=== PATIENT | female | born 1965 | race Caucasian/White ===

== ENCOUNTER 2020-12-09 14:58 | Outpatient (RCR) | payer BC, SELFPAY ==
[2020-12-09] MEDS: COVID-19 VACC, MRNA(PFIZER)/PF 30 MCG/0.3 ML SYRINGE IM (16:00)
[2020-12-30] MEDS: COVID-19 VACC, MRNA(PFIZER)/PF 30 MCG/0.3 ML SYRINGE IM (15:18)
== END 2020-12-09 23:59 ==
LOC: IMMUN 14:58
PROVIDERS: PCP Internal Medicine; Visit Provider Family Medicine
DX: Z23 Encounter for immunization (principal)
CPT/HCPCS: 0001A; 0002A; 91300

== ENCOUNTER → 2021-06-21 | Outpatient (CLI) | payer BC, SELFPAY | END | disposition home or self-care (01) | LOC: LABSPEC 15:23 | PROVIDERS: PCP Internal Medicine; Referring Provider Physician Assistant; Visit Provider Physician Assistant | DX: U07.1 COVID-19 (principal) | CPT/HCPCS: 87635; U0005; U0003 ==

== ENCOUNTER 2021-09-18 16:33 | Outpatient (CLI) | payer BC, SELFPAY | END 2021-09-18 23:59 | disposition short-term general hospital (02) | LOC: LABSPEC 16:35 | PROVIDERS: PCP Internal Medicine; Visit Provider Physician Assistant | DX: R06.02 Shortness of breath (principal) | CPT/HCPCS: 87635; U0003; U0005 ==

== ENCOUNTER 2022-01-29 20:33 | Emergency (ER) | payer BC, SELFPAY ==
[2022-01-29 20:35] VITALS: BP 204/81; PULSE 95; RESP 16; TEMP 36.1; O2SAT 97; BMI 25.0
--- NOTE | 2022-01-29 20:47 | EDS_ITS ---
HPI History of Present Illness Chief Complaint: Allergic Reaction Informant: patient Narrative Narrative: 56-year-old female states that she took Augmentin this evening. She broke out in a rash and itching. She notes that her throat feels tight. She was prescribed this for ear infection. She notes bilateral ear pain and rhinorrhea. No vomiting or diarrhea. She states that she has had amoxicillin in the past and did not react to it [facility] Home Medications cefdinir 300 mg PO BID #20 cap 01/29/22 [Rx Last Taken Unknown] lisinopril 10 mg PO DAILY 01/29/22 [History Last Taken Unknown] pravastatin 40 mg PO DAILY 01/29/22 [History Last Taken Unknown] prednisone 60 mg PO DAILY #9 tablet 01/29/22 [Rx Last Taken Unknown] Allergy/AdvReac Type Severity Reaction Status Date / Time Androgenic Anabolic Steroid Allergy Mild Unknown Verified 01/29/22 20:38 codeine Allergy Mild Unknown Verified 01/29/22 20:38 amoxicillin [From Augmentin] Allergy Rash Verified 01/29/22 20:55 clavulanic acid Allergy Rash Verified 01/29/22 20:55 [From Augmentin] Social History (Updated 01/29/22 @ 20:[address] Nahid Monge, DO) Smoking Status: Current every day smoker tobacco type: cigarettes substance use type: does not use ROS ROS ED Constitutional Constitutional ED: Denies chills, fever(s) or weight loss Eyes Eyes: Denies change in vision or diplopia ENT ENT ED: Reports ear pain and rhinorrhea; Denies sore throat Cardiovascular Cardiovascular: Denies chest pain, orthopnea, palpitations or racing heartbeat Respiratory/Chest Respiratory/Chest: Denies cough, dyspnea or orthopnea Gastrointestinal Gastrointestinal: Denies abdominal pain, diarrhea, nausea or vomiting Genitourinary Genitourinary ED: Denies dysuria, hematuria or urinary frequency Musculoskeletal Musculoskeletal: Denies arthralgias or myalgias Integumentary Reports rash; Denies abscess Neurologic Neurologic: Denies headache(s) or weakness Psychiatric Psychiatric: Denies anxiety, depression, suicidal ideation or suicidal thoughts Endocrine Endocrinology: Denies polydipsia, polyphagia or polyuria Allergic/Immunologic Allergic/Immunologic ED: Denies mouth swelling, tongue swelling or urticaria EXAM Physical Exam Const Vital Signs: 01/29/22 20:35 01/29/22 20:56 01/29/22 21:41 Temperature 97 F L Temperature Source Temporal Pulse Rate 95 71 Respiratory Rate 16 15 Blood Pressure 204/81 H 156/76 H 145/56 H Blood Pressure Mean 122 102 85 Pulse Ox 97 94 Oxygen Delivery Method Room Air Room Air Positive well nourished and well developed General Appearance ED: well developed HEENT Reports normocephalic, head/scalp atraumatic and moist mucous membranes HEENT Narrative: Bilateral tympanic membrane erythema there is bilateral external ear swelling. The uvula is not swollen. There is no tongue swelling or lip swelling. The patient's voice appears normal and she is handling her secretions normally Negative for trauma Eyes PERRL and EOMs intact bilaterally Neck no lymphadenopathy, supple and no JVD Resp normal respiratory effort and clear to auscultation bilaterally Cardio regular rate, regular rhythm and no murmurs GI normal to inspection, nondistended, normoactive bowel sounds and non-tender Palpation: soft Back/Spine no CVA tenderness and normal ROM Extremity normal to inspection General Extremety ED: Negative for edema General Extremity: Negative for edema Neuro oriented x3 and CN's II-XII intact bilaterally Sensorium / Orientation: alert Motor Exam: strength 5/5 throughout Psych mental status grossly normal Mood & Affect: Negative for depressed or tearful Skin no wounds Skin Narrative: Patient has a diffuse erythematous rash over head torso and arms. There are some hives noted. MDM MDM MDM Narrative Medical decision making narrative: This does appear to be allergic reaction. She was treated with Benadryl and Solu-Medrol and observed. On repeat examination 1 1/2 hrs later she is feeling significantly improved. The fullness in her throat has resolved. Her rash is resolving and her ear swelling is gone. Patient will be prescribed prednisone is instructed to take Benadryl every 6 hours for the next 24 hours. I can write for cefdinir for the ear infection. Discharge Plan Triage Chief Complaint: Allergic Reaction ED Provider: Nahid Monge Dx/Rx/DC Orders Clinical Impression: Acute allergic reaction, Allergic reaction to penicillin, Otitis media Instructions: ED ADVERSE DRUG REACTION Allergic Prescriptions: New cefdinir 300 mg capsule 300 mg PO BID Qty: 20 RF: 0 prednisone 20 MG tablet 60 mg PO DAILY Qty: 9 RF: 0 No Action lisinopril 10 mg tablet 10 mg PO DAILY RF: 0 pravastatin 20 mg tablet 40 mg PO DAILY RF: 0 Primary Care Provider: Heather Parker Referrals: Heather Parker MD [Primary Care Provider] - As Needed Disposition Disposition: Home, Self Care
[2022-01-29] MEDS: DiphenhydrAMINE 50 MG/ML Syringe IV (20:51)
[2022-01-29] MEDS: MethylPREDNISolone 125 MG/2 ML Vial IV (20:51)
[2022-01-29 20:56] VITALS: BP 156/76
[2022-01-29 21:41] VITALS: BP 145/56; PULSE 71; RESP 15; O2SAT 94
[2022-01-29] MEDS: DiphenhydrAMINE 25 MG Capsule PO (22:37)
[2022-01-29 22:41] VITALS: BP 130/68; PULSE 87; RESP 15; O2SAT 99
== END 2022-01-29 22:42 | disposition home or self-care (01) ==
LOC: ED 20:51
PROVIDERS: Emergency Provider Emergency Medicine; PCP Internal Medicine; Visit Provider Emergency Medicine
DX: R22.0 Localized swelling, mass and lump, head (principal); T78.40XA Allergy, unspecified, initial encounter; T36.0X5A Adverse effect of penicillins, initial encounter; H66.93 Otitis media, unspecified, bilateral; F17.210 Nicotine dependence, cigarettes, uncomplicated
CPT/HCPCS: 96374; 96375; 99285; A4216

== ENCOUNTER 2022-05-14 03:17 | Emergency (ER) | payer BC, SELFPAY ==
[2022-05-14 03:17] VITALS: BP 168/87; PULSE 80; RESP 17; TEMP 36.7; O2SAT 100; BMI 26.3
--- NOTE | 2022-05-14 03:59 | EKG12_ITS ---
Test Reason : CP Blood Pressure : / mmHG Vent. Rate : 069 BPM Atrial Rate : 070 BPM P-R Int : 200 ms QRS Dur : 088 ms QT Int : 400 ms P-R-T Axes : 059 041 061 degrees QTc Int : 428 ms Normal sinus rhythm Normal ECG Confirmed by SOFYA BRITO, SARAH ([id number]), department editor DENIS MADRID ([id number]) on 05/15/2022 6:17:31 AM Referred By: BB Confirmed By:SARAH COWART MD
--- NOTE | 2022-05-14 04:01 | EDS_ITS ---
HPI History of Present Illness Chief Complaint: Chest Pain Informant: patient Onset/Context/Timing Onset: Today Narrative Narrative: Patient presents with relatively vague symptoms she has a hard time describing, but saying that she was intermittently feeling poorly. She states that this has been over the last several hours. She feels okay right now, but earlier she was having episodes of chills, and just feeling poorly, sometimes she felt palpitations like her heart was beating hard and racing at the same time, not skipping or necessarily irregular. She has no history of heart problems that she knows of. She takes medicine for blood pressure. She admits to having a cough lately. She states that she was feeling sick but denies nausea. She states something about the feeling her pulse, but has a hard time describing what ever she means. She denies any known fevers. She has felt a little achy. When asked if she has any diarrhea she states not yet but states she has felt gassy. No vomiting. No focal neurologic symptoms, no headache at this time. She started taking clindamycin 2 or 3 days ago for an otitis media. When she started having the symptoms tonight although she did not have any earache or pain, she took 2 naproxen and she cannot give me another reason why other than that she did not feel well. [facility] Medical History HTN (hypertension) Pure hypercholesterolemia, unspecified Home Medications lisinopril 10 mg tablet 10 mg PO DAILY 01/29/22 [History Last Taken Unknown] pravastatin 20 mg tablet 40 mg PO DAILY 01/29/22 [History Last Taken Unknown] clindamycin HCl 150 mg capsule 450 mg PO TID 05/14/22 [History Last Taken Unknown] Allergy/AdvReac Type Severity Reaction Status Date / Time Androgenic Anabolic Steroid Allergy Mild Unknown Verified 05/14/22 03:34 codeine Allergy Mild Unknown Verified 05/14/22 03:34 amoxicillin [From Augmentin] Allergy Rash Verified 05/14/22 03:34 clavulanic acid Allergy Rash Verified 05/14/22 03:34 [From Augmentin] Social History Smoking Status: Current every day smoker tobacco type: cigarettes substance use type: does not use ROS ROS ED Constitutional Constitutional ED: Reports as per HPI, fatigue and malaise; Denies chills Eyes Eyes: Denies change in vision or diplopia ENT ENT ED: Denies rhinorrhea or sore throat Cardiovascular Cardiovascular: Reports as per HPI, palpitations and racing heartbeat; Denies chest pain Respiratory/Chest Respiratory/Chest: Reports cough; Denies dyspnea Gastrointestinal Gastrointestinal: Reports as per HPI; Denies abdominal pain, diarrhea, hematochezia, melena, nausea or vomiting Genitourinary Genitourinary ED: Denies dysuria or hematuria Musculoskeletal Musculoskeletal: Reports myalgias; Denies back pain or neck pain Integumentary Denies abscess or rash Neurologic Neurologic: Denies headache(s), paresthesias or weakness Psychiatric Psychiatric: Denies anxiety or suicidal thoughts EXAM Physical Exam Const Vital Signs: 05/14/22 03:17 05/14/22 03:24 05/14/22 04:17 Temperature 98.1 F Temperature Source Oral Pulse Rate 80 66 Respiratory Rate 17 18 Respiratory Effort Normal Non-Labored Blood Pressure 168/87 H 152/74 H Blood Pressure Mean 114 100 Pulse Ox 100 98 Oxygen Delivery Method Room Air Room Air Positive well nourished and well developed General Appearance ED: well developed and NAD HEENT Reports moist mucous membranes normocephalic and atraumatic Eyes PERRL and EOMs intact bilaterally Neck full ROM, no lymphadenopathy and supple Resp normal respiratory effort and clear to auscultation bilaterally Cardio regular rate, regular rhythm and no murmurs Rate: Negative for bradycardia or tachycardic GI non-tender and non-distended Auscultation: normoactive bowel sounds Palpation: soft Back/Spine no CVA tenderness General Back: other FROM Extremity normal to inspection General Extremety ED: Negative for edema, pulses abnormal or tenderness General Extremity: Negative for edema or pulses abnormal Neuro oriented x3, CN's II-XII intact bilaterally and no sensory deficits noted Sensorium / Orientation: awake and alert Motor Exam: strength 5/5 throughout Skin no rashes or lesions noted and no wounds MDM MDM MDM Narrative Medical decision making narrative: Patient has fairly vague symptoms and the differential was broad including infectious, metabolic, cardiovascular etiologies, this is not an exclusive list. Her chest x-ray 1 view on my interpretation is negative for any acute infiltrates or CHF, her urine shows no infection. Metabolic screening is unremarkable, her blood counts are also unremarkable. I did a COVID rapid swab which is negative as is her influenza. With regards to COVID that she has only had symptoms for half of a day or less, a negative test does not necessarily rule it out and I would encourage her to repeat the rapid test in a couple days if she is still having symptoms. The differential includes elevations as well as a transient dysrhythmias and/or ectopy, here she has displayed no telemetry events or ectopy and her blood pressure is trended down initially 168/87 then 152/74, and now 133/71 without any specific treatment. She is taking clindamycin which is a relatively new medication, it is unknown if that could be causing any of this, she states she is taking it for otitis media, and at this time I think it would be okay to continue it but discontinue it would be up to her, I do not have any specific reason to recommend that at this time. At this time, given that everything is negative and her blood pressure has normalized, I am comfortable discharging her home with close outpatient follow-up. We discussed reasons to return she is comfortable with that plan. Lab Data Attestation: I reviewed the patient's lab results. Labs: Laboratory Results - last 24 hr 05/14/22 05/14/22 05/14/22 03:30 03:30 04:10 WBC 10.2 RBC 4.59 Hgb 15.4 H Hct 45.1 MCV 98.3 MCH 33.6 H MCHC 34.1 RDW Std Deviation 45.9 H RDW Coeff of [place] 12.9 Plt Count 359 MPV 8.9 Immature Gran % (Auto) 0.200 Neut % (Auto) 50.4 Lymph % (Auto) 38.3 Lucas % (Auto) 8.9 Eos % (Auto) 1.5 Baso % (Auto) 0.7 Absolute Neuts (auto) 5.1 Absolute Lymphs (auto) 3.90 Nucleated RBC % 0 Sodium 138 Potassium 3.8 Chloride 104 Carbon Dioxide 26.0 Anion Gap 8 BUN 13 Creatinine 0.83 Estim Creat Clear Calc 74.53 Est GFR (MDRD) Af Amer 91 Est GFR (MDRD) Non-Af 75 BUN/Creatinine Ratio 15.7 Glucose 111 H Calcium 9.4 Troponin I High Sens 5 Urine Color Yellow Urine Clarity Clear Urine pH 6.0 Ur Specific [place] 1.015 Urine Protein 15 H Urine Glucose (UA) Normal Urine Ketones Negative Urine Occult Blood 10 H Urine Nitrite Negative Urine Bilirubin Negative Urine Urobilinogen Normal Ur Leukocyte Esterase Negative Urine RBC 0 SEEN Urine WBC 0 SEEN Ur Squamous Epith Cells 0 SEEN Urine Bacteria RARE Urine Mucus 0 SEEN Radiography Chest X-Ray - ED: 1 View, Read by ED Physician, No Acute Disease and No Infiltrates Diagnostic Testing: Clinical Impression(s) from Imaging Studies Chest X-Ray 05/14/22 04:16 IMPRESSION: Stable hyperinflation. No pulmonary edema, congestive heart failure or confluent pneumonia. Electronically Signed: Nika Jacobs MD at 4:38 EDT Reading Location ID and State: , Service support , Rhythm Strip Rhythm Strip: Sinus Rhythm Rate: 70 Ectopy: None EKG Initial EKG: Attestation: I personally reviewed and interpreted this EKG as follows: Interpretation: Sinus Rhythm and No Acute Injury Pattern Comments: Normal EKG Discharge Plan Triage Chief Complaint: Chest Pain ED Provider: Azam Cotton Dx/Rx/DC Orders Clinical Impression: Palpitations, Malaise and fatigue, Chills, Acute cough Instructions: ED Palpitations Prescriptions: No Action lisinopril 10 mg tablet 10 mg PO DAILY pravastatin 20 mg tablet 40 mg PO DAILY Label Comments: Take 1 tablet by mouth daily at bedtime. clindamycin HCl 150 mg capsule 450 mg PO TID Label Comments: Take 3 capsules by mouth three times daily for 5 days. Primary Care Provider: Heather Parker Referrals: Heather Parker MD [Primary Care Provider] - 3-5 Days if not improving Activity Restrictions/Additional Instructions: All of your testing in the emergency department was normal and your blood pressure came down to normal, initially 168/87 and on repeat 133/71 later in your visit. You tested negative for COVID, however it is possible to have a false negative if you test too early. If you are still having symptoms after 2 more days we recommend redoing a rapid test. These are available [id number] for home use, local retail pharmacies, or to the hospital or your doctor may be able to help. Disposition Disposition: Home, Self Care
[2022-05-14 04:13] LABS: Absolute Neutrophil Count 5.1 X10^3/uL (2.0-7.7); Basophil# 0.07 X10^3/uL; Basophil% 0.7 % (0-1); Eosinophil# 0.15 X10^3/uL; Eosinophils% 1.5 % (0-5); Hematocrit 45.1 % (37-47); Hemoglobin 15.4 g/dL (12.0-15.0); Lymphocyte % 38.3 % (19-41); Mean Corp Hgb Conc 34.1 g/dL (32-36); Mean Corpuscular Hgb 33.6 pg (27.0-32.0); Mean Corpuscular Volume 98.3 fL (81-99); Mean Platelet Vol. 8.9 fl (6.2-12.0); Monocyte# 0.91 X10^3/uL; Monocyte% 8.9 % (0-10); NRBC Flagged by Analyzer 0 % (0-5); Neutrophil # 5.14 X10^3/uL (2.7-7.7); Neutrophil % 50.4 % (47-70); Platelet Count 359 K/mm3 (150-450); RBC Distribution Width CV 12.9 % (11.6-14.6); RBC Distribution Width SD 45.9 fl (35.1-43.9); Red Blood Count 4.59 M/mm3 (4.2-5.4); White Blood Count 10.2 K/mm3 (4.4-11.0)
--- NOTE | 2022-05-14 04:16 | RAD_ITS ---
STUDY: X-RAY CHEST REASON FOR EXAM: Female, 57 years old. cough, chills TECHNIQUE: Single AP portable view of the chest. COMPARISON: 09/18/2021 FINDINGS: There are superimposed monitor leads. There is hyperinflation of the lungs consistent with chronic obstructive lung disease (COPD). There is no demonstrated pleural abnormality. Normal size heart. Normal mediastinum and kortney. Normal visualized pulmonary arteries. Normal visualized aortic arch and descending thoracic aorta. Normal visualized thoracic spine. Normal visualized ribs, clavicles, and shoulders. There is no demonstrated abnormality of the visualized soft tissue structures of the upper abdomen. RAD/Chest 1 View (Portable) IMPRESSION: Stable hyperinflation. No pulmonary edema, congestive heart failure or confluent pneumonia. Electronically Signed: Nika Jacobs MD at 4:38 EDT Reading Location ID and State: , Service support ,
[2022-05-14 04:17] VITALS: BP 152/74; PULSE 66; RESP 18; O2SAT 98
[2022-05-14 04:18] LABS: Mucous, Urine 0 SEEN /hpf (<or=2+); Red Blood Cells-Urine 0 SEEN /hpf (0-5); Squamous Epithelial Cells - UA 0 SEEN /hpf (5-10); White Blood Cells 0 SEEN /hpf (0-5)
[2022-05-14 04:20] LABS: Color, Urine Yellow (Yellow); Glucose, Dipstick Normal (Normal); Ketone-Dipstick Negative (Negative); Leukocyte Esterase-Dipstick Negative /ul (Negative); Nitrite-Dipstick Negative (Negative); Occult Blood-Urine 10 /ul (Negative); Protein-Dipstick 15 mg/dl (Negative); Specific Gravity, Urine 1.015 (1.002-1.030); Urine Bilirubin Dipstick Negative (Negative); Urine Clarity Clear (Clear); Urine Urobilinogen Normal (Normal)
[2022-05-14 04:33] LABS: Bacteria RARE /hpf (None Seen)
[2022-05-14 04:34] LABS: Anion Gap 8 (5-15); BUN 13 mg/dL (7-18); BUN/Creat Ratio 15.7 RATIO (10-20); Calcium,Total 9.4 mg/dL (8.5-10.1); Chloride 104 mmol/L (98-107); Creatinine, Serum 0.83 mg/dL (0.55-1.02); EST Glomerular Filtration Rate 75 mL/min (>60); Est Glom Filt Rate - Afr Amer 91 mL/min (>60); Estimated Creatinine Clearance 74.53 ml/min; Glucose 111 mg/dL (74-106); Potassium 3.8 mmol/L (3.5-5.1); Sodium Level 138 mmol/L (136-145); Troponin-I HS 5 pg/mL (3.0-54.0)
[2022-05-14 05:10] VITALS: BP 133/71; PULSE 68; RESP 17; O2SAT 96
== END 2022-05-14 05:13 | disposition home or self-care (01) ==
PROVIDERS: Emergency Provider Emergency Medicine; PCP Internal Medicine; Visit Provider Emergency Medicine
DX: R53.81 Other malaise (principal); I10 Essential (primary) hypertension; F17.210 Nicotine dependence, cigarettes, uncomplicated; R68.83 Chills (without fever); R00.2 Palpitations; E78.00 Pure hypercholesterolemia, unspecified; Z79.899 Other long term (current) drug therapy
CPT/HCPCS: 71045; 80048; 81001; 84484; 85025; 87428; 93005; 96360; 99284; J7040; A4216

== ENCOUNTER → 2022-07-02 | Outpatient (CLI) | payer BC, SELFPAY | END | disposition home or self-care (01) | LOC: LABSPEC 16:13 | PROVIDERS: PCP Internal Medicine; Visit Provider Physician Assistant | DX: K05.10 Chronic gingivitis, plaque induced (principal) | CPT/HCPCS: 87070; 87077; 87186; 87205 ==

== ENCOUNTER → 2022-08-24 | Outpatient (CLI) | payer BC, SELFPAY ==
--- NOTE | 2022-08-24 | MISC_PTH ---
PATIENT: DENZEL CASTANON LOC: [facility] U#:[id number] AGE/SX: 57/F ROOM: RE08/24/[address]: NIKOS SAHA MD : 1965 BED: DIS: 08/24/2022 SPEC #: [id number] RECD: 08/24/22 14:15 STATUS: JACK DARYN #: [id number] LYDIA: 08/24/22 00:[address]: NIKOS SAHA DEPT: SURGICAL PATHOLOGY RECD BY: Vidal Ruffin ENTERED: 08/24/22 14:15 SP TYPE: MISC OTHR DR: Dr. 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 Chronic inflammation. See comment. AM:cherelle 08/27/2022 COMMENT There is no evidence of vascular or perineural invasion. Skeletal muscle is represented in the biopsy and is free of carcinoma. Bony fragments are present embedded within the soft and appear to be free of carcinoma. Immunohistochemistry ([id number]) supports the above diagnosis. Note, the specimen is markedly fragmented and margins of excision cannot be determined. Clinical correlation is suggested. Case has been reviewed in consultation with Dr. Santana who concurs with the above diagnosis. JOE:LINDA MICROSCOPIC DESCRIPTION Slides are reviewed. GROSS DESCRIPTION Received in fixative is one container labeled with the patient's name and designated lower anterior tissue. The specimen consists of multiple irregular fragments of weinstein-pink, indurated tissue that in aggregate measure 3.5 x 2.5 x 0.5 cm. The largest fragment measures 2.5 cm in greatest dimension and it is serially sectioned. The entire specimen is submitted in two cassettes. / SJ:cherelle 08/24/2022 TC:0 [facility]: [id number] ADDENDUM ADDENDUM ADDENDUM ADDENDUM ADDENDUM ADDENDUM ADDENDUM ADDENDUM ADDENDUM ADDENDUM 10/26/2022 10:20 ADDENDUM 10/26/2022 10:20 ADDENDUM 10/26/2022 10:20 ADDENDUM 10/26/2022 10:20 ADDENDUM 10/26/2022 10:20 This addendum is added to incorporate an outside pathology consultation report. The case was examined at [facility] (#[id number]) and the following diagnosis was rendered. Anterior mandible, biopsy: Invasive squamous cell carcinoma, moderately differentiated, keratinizing type. Please see complete above mentioned consultation report in EMR
--- NOTE | 2022-08-24 | IMM_PTH ---
PATIENT: DENZEL CASTANON LOC: [facility] U#:[id number] AGE/SX: 57/F ROOM: RE08/24/[address]: NIKOS SAHA MD : 1965 BED: DIS: 08/24/2022 SPEC #: [id number] RECD: 08/27/22 12:59 STATUS: JACK REQ #: [id number] LYDIA: 08/24/22 00:[address]: NIKOS SAHA DEPT: IMMUNOHISTOCHEMISTRY RECD BY: María Sumner ENTERED: 08/27/22 13:01 SP TYPE: IMMUNO OTHR DR: Dr. Heather Parker MD Tissues: Mandible, NOS Procedures: CD31 (add) CK5-6 (add) KI-67 (add) P16 (add) 34BE12 (add) FACTOR VIII (add) Pankeratin (initial) Pankeratin (add) P40 (add) S-100 (add) PHYSICIAN & INSTITUTION [address] [address] SPECIMEN INFORMATION: Tissue Source: Mandibular anterior tissue and bone Clinical Info: Mandibular anterior lesion Specimen Number: [id number] #1 & 2 CPT code: 58953, 82077 x17 METHODOLOGY: Deparaffinized sections of prefer/formalin-fixed tissue or PAP/DQ stained slides are incubated with monoclonal/polyclonal antibodies/oligonucleotide probes. Localization is made via biotin free immunoperoxidase method. Appropriate controls are performed and reacted as expected. Results on target cell population are indicated in the following table: RESULTS: ANTIBODY / CLONE RESULT Block 1 AE1-3 (AE1/AE3/PCK26) positive 34BE12 (34BE12) positive CD31 (DAVID/70A) negative Factor VIII (R Ag) negative S-100 (4C4.9) negative CK5-6 (D5 & 1684) positive P40 (BC28) positive P16 (E6H4) positive, focal, patchy Ki-67 (30-9) positive, low Block 2 AE1-3 (AE1/AE3/PCK26) positive 34BE12 (34BE12) positive CD31 (DAVID/70A) negative Factor VIII (R Ag) negative S-100 (4C4.9) negative CK5-6 (D5 & 1684) positive P40 (BC28) positive P16 (E6H4) positive, focal, patchy Ki-67 (30-9) positive, low These tests were developed and their performance characteristics determined by [facility]. They may not have been cleared or approved by the U.S. Food and Drug Administration. The FDA has determined that such clearance or approval is not necessary. The above immunohistochemical/dualISH markers are ordered and reviewed by the Pathologist. INTERPRETATION: Mandibular anterior tissue and bone, biopsy: Invasive squamous cell carcinoma. Comment: No vascular or perineural invasion is identified. AM:cherelle 08/28/2022
== END | disposition home or self-care (01) ==
LOC: LABSPEC 13:05
PROVIDERS: PCP Internal Medicine; Visit Provider Dentist Oral and Maxillofacial Surgery
DX: C44.320 Squamous cell carcinoma of skin of unspecified parts of face (principal)
CPT/HCPCS: 88305; 88341; 88342